=== PATIENT | female | born 1955 | race Caucasian/White ===

== ENCOUNTER 2018-06-25 17:27 | Emergency (ER) | payer MEDICAID ==
[~2018-06-25] VITALS: Ht 152.4 cm; Wt 511.7 kg
[2018-06-25 17:30] VITALS: BP 132/85; Ht 152.4 cm; Wt 511.7 kg
== END 2018-06-25 19:46 | disposition home or self-care (01) ==
LOC: ED 17:27
DX: S61.412A Laceration without foreign body of left hand, initial encounter (principal); I10 Essential (primary) hypertension; Z98.890 Other specified postprocedural states; W26.0XXA Contact with knife, initial encounter; Y93.89 Activity, other specified; Y92.89 Other specified places as the place of occurrence of the external cause; Y99.8 Other external cause status
CPT/HCPCS: 90715; J2001

== ENCOUNTER 2018-08-20 11:15 | Emergency (ER) | payer MEDICAID ==
[~2018-08-20] VITALS: Ht 152.4 cm; Wt 59.1 kg
[2018-08-20 11:34] VITALS: Ht 152.4 cm; Wt 59.1 kg
[2018-08-20 13:30] VITALS: BP 126/53
== END 2018-08-20 13:30 | disposition home or self-care (01) ==
LOC: ED 11:15
DX: M79.662 Pain in left lower leg (principal); I10 Essential (primary) hypertension; R20.2 Paresthesia of skin

== ENCOUNTER 2019-04-15 10:08 | Emergency (ER) | payer MEDICAID ==
[~2019-04-15] VITALS: Ht 152.4 cm; Wt 56.2 kg
[2019-04-15 10:36] VITALS: Ht 152.4 cm; Wt 56.2 kg
[2019-04-15 11:16] VITALS: BP 138/90
== END 2019-04-15 12:20 | disposition home or self-care (01) ==
LOC: ED 10:08
DX: S52.501A Unspecified fracture of the lower end of right radius, initial encounter for closed fracture (principal); S52.611A Displaced fracture of right ulna styloid process, initial encounter for closed fracture; I10 Essential (primary) hypertension; Z98.890 Other specified postprocedural states; W01.0XXA Fall on same level from slipping, tripping and stumbling without subsequent striking against object, initial encounter; Y93.E5 Activity, floor mopping and cleaning; Y92.89 Other specified places as the place of occurrence of the external cause; Y99.8 Other external cause status
CPT/HCPCS: A4570; J2270; Q0162

== ENCOUNTER 2019-04-16 12:44 | Emergency (ER) | payer MEDICAID ==
[~2019-04-16] VITALS: Ht 152.4 cm; Wt 56.2 kg
[2019-04-16 12:47] VITALS: Ht 152.4 cm; Wt 56.2 kg
[2019-04-16 16:53] VITALS: BP 132/71
== END 2019-04-16 16:30 | disposition home or self-care (01) ==
LOC: ED 12:44
DX: S52.501A Unspecified fracture of the lower end of right radius, initial encounter for closed fracture (principal); S52.611A Displaced fracture of right ulna styloid process, initial encounter for closed fracture; I10 Essential (primary) hypertension; Z98.890 Other specified postprocedural states; W01.0XXA Fall on same level from slipping, tripping and stumbling without subsequent striking against object, initial encounter; Y93.89 Activity, other specified; Y92.89 Other specified places as the place of occurrence of the external cause; Y99.8 Other external cause status
CPT/HCPCS: J1885; J2704